=== PATIENT | male | born 1945 | race Caucasian/White ===

== ENCOUNTER 2018-07-18 08:29 | Emergency (ER) | payer MEDICARE, BC ==
[~2018-07-18] VITALS: Ht 172.7 cm; Wt 84.1 kg
[2018-07-18 08:35] VITALS: TEMP 96.6
[2018-07-18 08:51] LABS: BASO # 0.2 (0.0-0.2); BASO % 1.4 % (0.0-2.0); EOS # 0.4 (0.0-0.7); EOS % 4.1 % (0-4.0); GRAN % 65.1 % (42.2-75.2); HEMOGLOBIN 17.9 g/dl (13.5-18.0); LYMPH # 2.1 (1.2-3.4); LYMPH % 19.3 % (20.0-51.0); MEAN CELL VOLUME 89 fl (80.0-100.0); MEAN CORPUSCULAR HEMOGLOBIN 30 pg (27.0-31.0); MEAN CORPUSCULAR HGB CONC 34 g/dl (33.0-37.0); MEAN PLATELET VOLUME 10.9 fl (7.4-10.4); MONO # 1.1 (0.1-0.6); MONO % 9.8 % (1.7-9.3); PLATELET COUNT 452 K/mm3 (130-400); RED BLOOD COUNT 5.91 M/mm3 (4.20-5.60); REDCELL DISTRIBUTION WIDTH-CV 14.5 % (11.5-14.5)
[2018-07-18 08:55] LABS: HEMATOCRIT 52.4 % (42.0-52.0); INR 1.1 (0.8-3.0); PROTHROMBIN TIME 12.9 SECONDS (9.7-12.8)
[2018-07-18 08:58] LABS: PARTIAL THROMBOPLASTIN TIME 39.8 SECONDS (26.0-37.0)
[2018-07-18 09:01] LABS: ALBUMIN 4.1 gm/dL (3.5-5.0); BILIRUBIN,TOTAL 0.8 mg/dL (0.0-1.0); CALCIUM 9.6 mg/dL (8.4-10.2); CREATININE, serum 1.15 mg/dL (0.66-1.25); POTASSIUM 4.9 mmol/L (3.4-5.0); TOTAL PROTEIN 7.4 gm/dL (6.4-8.2)
[2018-07-18] MEDS ORDERED: IMDUR 30MG30 MG/TAB PO (09:06)
[2018-07-18] MEDS ORDERED: ALBUTEROL0.83 MG/ML INH (09:07)
[2018-07-18] MEDS ORDERED: ASPIRIN 81M81 MG/TA2 PO (09:08)
[2018-07-18] MEDS ORDERED: GLUCOSAMINE & C1 TAB PO (09:08)
[2018-07-18] MEDS ORDERED: MULTIPLE VITAMI1 CAP PO (09:09)
[2018-07-18] MEDS ORDERED: LOPRESSOR 225 MG/TAB PO (09:09)
[2018-07-18] MEDS ORDERED: NITROSTAT0.4 MG/TAB PO (09:10)
[2018-07-18] MEDS ORDERED: PRILOSEC 20MG20 MG PO (09:10)
[2018-07-18] MEDS ORDERED: ZOCOR 40MG40 MG PO (09:10)
[2018-07-18 09:13] LABS: TROPONIN-I 0.014 ng/mL (0.000-0.034)
[2018-07-18 11:28] VITALS: BP 127/98; PULSE 54
== END 2018-07-18 11:28 | disposition short-term general hospital (02) ==
LOC: COL.ER 08:29
PROVIDERS: Family Medicine
DX: I20.0 Unstable angina (principal); I10 Essential (primary) hypertension; Z87.891 Personal history of nicotine dependence; Z79.82 Long term (current) use of aspirin
CPT/HCPCS: J1644

== ENCOUNTER 2022-03-27 15:14 | Inpatient (IN) | payer MEDICARE, BC ==
[~2022-03-27] VITALS: Ht 170.2 cm; Wt 90.9 kg
[~2022-03-27 15:14] MED LIST: ALBUTEROL0.83 MG/ML INH; ASPIRIN 81M81 MG/TA2 PO; GLUCOSAMINE & C1 TAB PO; IMDUR 30MG30 MG/TAB PO; LOPRESSOR 225 MG/TAB PO; MULTIPLE VITAMI1 CAP PO; NITROSTAT0.4 MG/TAB PO; PRILOSEC 20MG20 MG PO; ZOCOR 40MG40 MG PO
[2022-03-27 16:10] LABS: HEMATOCRIT 45.2 % (42.0-52.0); HEMOGLOBIN 15.1 g/dl (13.5-18.0); MEAN CELL VOLUME 85 fl (80.0-100.0); MEAN CORPUSCULAR HEMOGLOBIN 29 pg (27-31); MEAN CORPUSCULAR HGB CONC 33 g/dl (33.0-37.0); PLATELET COUNT 652 K/mm3 (130-400); REDCELL DISTRIBUTION WIDTH-CV 15.4 % (11.5-14.5)
[2022-03-27 16:24] LABS: ALBUMIN 3.1 gm/dL (3.4-4.8); CALCIUM 9.6 mg/dL (8.4-10.2); CREATININE, serum 1.13 mg/dL (0.72-1.25); PHOSPHOROUS 2.7 mg/dL (2.3-4.7); POTASSIUM 4.2 mmol/L (3.5-4.5)
--- NOTE | 2022-03-27 16:25 | NUR ---
Vegetable Preparer received consult in ED for patient who presented to the ED for multiple falls and inability to care for self at home. Patient is in CT so GWEN met with patient's , Debbie who advised patient had a "hard fall" on 03/12/22 and was initially okay, however started having leg pain a few days ago. Patient was seen by his PCP, Dr. Mayo yesterday and there no was no fracture found so patient was told to give it a week. Patient has had a couple falls since his initial fall and after his fall today, Debbie was unable to help him up. Patient is normally independent with ADLS. GWEN discussed private pay placement with Debbie who advised they could do this if that's their only option. Debbie did not want referral sent to [facility], but agreed to have referral sent to [facility] after local SNF options were provided. GWEN contacted Jordan and faxed facesheet and ED note. GWEN advised it would be private pay at this time, however patient may be admitted per ED RN. Patient's verbalized understanding that either patient will be admitted or he will return home for continued placement effort tomorrow.
[2022-03-27 16:32] LABS: TROPONIN-I 0.015 ng/mL (0.00-0.033)
[2022-03-27 16:34] LABS: COLLECTION METHOD CLEAN CATCH
[2022-03-27 16:40] LABS: PH 5 (5-8); SQUAMOUS EPITHELIAL None Seen /hpf (0-10); URINE APPEARANCE Clear (CLEAR/HAZY); URINE BACTERIA None Seen /hpf (NONE SEEN); URINE BLOOD 1+ (NEGATIVE); URINE COLOR Yellow (YELLOW); URINE GLUCOSE Negative (NEGATIVE); URINE KETONE 1+ (NEGATIVE); URINE NITRATE Negative (NEGATIVE); URINE PROTEIN(semi-quant) 1+ (NEGATIVE); URINE RBC 0-2 /hpf (0-2); URINE UROBILINOGEN Negative (NEGATIVE)
[2022-03-27 16:49] LABS: PLATELET ESTIMATE INCREASED (NORMAL)
[2022-03-27 17:12] LABS: NEUTROPHILS 84 % (42.0-75.2)
[2022-03-27 17:13] LABS: LYMPHOCYTE 5 % (20.0-51.0)
[2022-03-27 17:14] LABS: BAND 2 % (0-10); EOSINOPHIL 2 % (0-4)
[2022-03-27 20:19] LABS: PARTIAL THROMBOPLASTIN TIME 90.2 SECONDS (26.0-37.0)
[2022-03-27] MEDS ORDERED: ARICEPT10 MG PO (20:22)
[2022-03-27] MEDS ORDERED: CELEXA40 MG PO (20:22)
[2022-03-27] MEDS ORDERED: COUMADIN 22.5 MG/TAB PO (20:23)
[2022-03-27] MEDS ORDERED: COUMADIN 2MG2 MG/TAB PO ×2 (20:23→21:51)
[2022-03-27] MEDS ORDERED: NAMENDA 10MG TA10 MG PO (20:24)
[2022-03-27] MEDS ORDERED: ZOCOR 40MG40 MG PO (20:24)
[2022-03-27] MEDS ORDERED: ABILIFY5 MG PO (20:25)
[2022-03-27] MEDS ORDERED: ULTRAM 50MG TAB50 MG PO (20:25)
[2022-03-27] MEDS ORDERED: CALCIUM 600MG+D1 TAB PO (20:25)
[2022-03-27 20:32] LABS: INR 19.3 (0.8-3.0); PROTHROMBIN TIME 228.8 SECONDS (9.7-12.8)
[2022-03-27 21:40] VITALS: BP 125/83; PULSE 101; TEMP 98.1
[2022-03-27 23:52] VITALS: BP 106/68; PULSE 99; TEMP 97.7
[2022-03-28 00:44] LABS: INR 1.3 (0.8-3.0); PROTHROMBIN TIME 15.5 SECONDS (9.7-12.8)
--- NOTE | 2022-03-28 02:20 | NUR ---
PATIENT ARRIVED TO FLOOR APPROX [id number]. AT BEDSIDE, PATIENT ABLE TO ANSWER SOME QUESTIONS BUT RELIES HEAVILY ON FOR INFORMATION. NO BRUISING OR DISCOLORATION NOTED TO HIP BUT PATIENT DOES HAVE GENERALIZED BRUISING NOTED. PATIENT NOTED TO BE UNCOMFORTABLE AND RESTLESS. PRN DIALUDID GIVEN AND PATIENT ABLE TO REST QUIETLY.
[2022-03-28 04:40] VITALS: BP 130/72; PULSE 102; TEMP 97.6
--- NOTE | 2022-03-28 06:15 | NUR ---
END OF SHIFT. PATIENT RESTED QUIETLY THIS SHIFT. PATIENT INR NOTED TO BE 1.3 AFTER [facility]. PATIENT ATTEMPTED TO GET UP SEVERAL TIMES UNASSISTED. PATIENT EASILY REDIRECTED AND REORIENTED. PATIENT HAD COMPLAINTS OF PAIN AND RECEIVED ONE DOSE OF ULTRAM WHICH PAIENT REPORTED RELIEF FROM. PATIENT ATTEMPTED TO URINATE BUT WAS UNABLE TO DO SO. BLADDER SCAN PERFORMED AND PATIENT NOTED TO ONLY HAVE 170 IN BLADDER. PATIENT ENCOURAGED TO DRINK MORE FLUIDS.
[2022-03-28 07:03] LABS: HEMATOCRIT 42.7 % (42.0-52.0); HEMOGLOBIN 14.3 g/dl (13.5-18.0); MEAN CELL VOLUME 86 fl (80.0-100.0); MEAN CORPUSCULAR HEMOGLOBIN 29 pg (27-31); MEAN CORPUSCULAR HGB CONC 34 g/dl (33.0-37.0); MEAN PLATELET VOLUME 11.8 fl (7.4-10.4); PLATELET COUNT 572 K/mm3 (130-400); RED BLOOD COUNT 4.95 M/mm3 (4.20-5.60); REDCELL DISTRIBUTION WIDTH-CV 15.5 % (11.5-14.5)
[2022-03-28 07:08] LABS: INR 1.2 (0.8-3.0); PROTHROMBIN TIME 13.8 SECONDS (9.7-12.8)
[2022-03-28 07:37] LABS: CALCIUM 9.4 mg/dL (8.4-10.2); CREATININE, serum 1.17 mg/dL (0.72-1.25); EOSINOPHIL 3 % (0-4); LYMPHOCYTE 4 % (20.0-51.0); NEUTROPHILS 81 % (42.0-75.2); OVALOCYTES 1+; PLATELET ESTIMATE INCREASED (NORMAL)
[2022-03-28 07:53] VITALS: BP 113/88; PULSE 92; TEMP 98.8
--- NOTE | 2022-03-28 08:19 | NUR ---
PATIENT IS CURRENTLY IN A PLEASANT MOOD. ANSWERED YEAR AND BIRTHDAY CORRECTLY. UNABLE TO TELL ME TODAY DATE, OR PRESIDENT, OR WHERE HE CURRENTLY IS. PATIENT REORIENTED. CALL LIGHT EXPLAINED. CALL LIGHT AND WATER WITHIN REACH.
--- NOTE | 2022-03-28 10:59 | NUR ---
[facility] HAS PUT A FALL RISK BAND ON THE PATIENT TWO TIMES. HE TOOK OFF THE WRIST BAND. ANOTHER APPLIED. JOANNA NON COMPLIANT.
[2022-03-28 12:08] VITALS: BP 138/77; PULSE 100; TEMP 97.6
--- NOTE | 2022-03-28 12:53 | NUR ---
Initial visit; Patient thanked Knuckle Bender for introducing herself and talking with 'Mike about what brought him to the hospital. Both he and his agreed that they had a diagnosis now and could work with it and hoped Mike would soon be better. Knuckle Bender offered God's blessings.
--- NOTE | 2022-03-28 14:00 | NUR ---
INFORMED PHYSICIAN PATIENTS IS ADAMEN THAT SHE WAS INFORMED WE WOULD DO AN MRI TO DECIPHER BETWEEN HEMATOMA VS ABCESS FROM OTHER IMAGES TAKEN. PHYSICIAN STATED TO INFORM PATIENTS THAT WE HAVE AN ESR LAB PENDING AND ONCE IT RESULTS WE WILL KNOW WHAT STEP TO TAKE NEXT.
--- NOTE | 2022-03-28 15:21 | NUR ---
GWEN contacted Jordan at [facility] to follow up on referral. Jordan reports that they will need more information before deciding on if they can accept or not. Updates faxed to [facility].
[2022-03-28 15:42] VITALS: BP 102/70; PULSE 95; TEMP 97.9
--- NOTE | 2022-03-28 16:00 | NUR ---
INFORMED PHYSICIAN ESR CAME BACK WNL. PHSYICIAN SAID NO FURTHER TESTS NEEDED.
[2022-03-28 20:28] VITALS: BP 119/73; PULSE 92; TEMP 98.2
[2022-03-29 00:28] VITALS: BP 116/51; PULSE 92; TEMP 98.1
[2022-03-29 07:45] VITALS: BP 121/66; PULSE 88; TEMP 98
[2022-03-29 12:08] VITALS: BP 110/69; PULSE 90; TEMP 97.9
--- NOTE | 2022-03-29 15:32 | NUR ---
GWEN staffed with the hospitalist. The patient is awaiting an MRI. He may be able to discharge over the weekend, otherwise he would be looking at Friday. GWEN notified Jordan at [facility]. He states that they are still reviewing the referral. They would request a copy of the patient's DPOA-HC. GWEN contacted the patient's , Debbie, to update. GWEN informed her how the patient was admitted inpatient, so they would not have to private pay now. Debbie states that she does have a copy of the DPOA-HC and she will bring it up to the hospital. She would like to pursue with the patient going to [facility]. *Discharge plan: [facility]-awaiting acceptance*
[2022-03-29 15:59] VITALS: BP 103/65; PULSE 78; TEMP 98.2
[2022-03-29 20:07] VITALS: BP 117/60; PULSE 78; TEMP 97.8
[2022-03-29 23:57] VITALS: BP 112/68; PULSE 80; TEMP 98.2
[2022-03-30 04:00] VITALS: BP 122/74; PULSE 87; TEMP 98.2
[2022-03-30 07:04] LABS: BASO # 0.1 K/mm3 (0.0-0.2); BASO % 1.1 % (0.0-2.0); EOS # 0.6 K/mm3 (0.0-0.7); EOS % 5.3 % (0.0-4.0); GRAN # 7.9 K/mm3 (1.4-6.5); GRAN % 71.2 % (42.2-75.2); HEMATOCRIT 37.9 % (42.0-52.0); HEMOGLOBIN 12.4 g/dl (13.5-18.0); LYMPH # 1.3 K/mm3 (1.2-3.4); MEAN CELL VOLUME 88 fl (80.0-100.0); MEAN CORPUSCULAR HEMOGLOBIN 29 pg (27-31); MEAN CORPUSCULAR HGB CONC 33 g/dl (33.0-37.0); MEAN PLATELET VOLUME 11.3 fl (7.4-10.4); MONO # 1.1 K/mm3 (0.1-0.6); PLATELET COUNT 538 K/mm3 (130-400); REDCELL DISTRIBUTION WIDTH-CV 15.6 % (11.5-14.5)
[2022-03-30 07:22] LABS: CALCIUM 9.2 mg/dL (8.4-10.2); CREATININE, serum 1.25 mg/dL (0.72-1.25); POTASSIUM 3.7 mmol/L (3.5-4.5)
[2022-03-30 08:00] VITALS: BP 119/82; PULSE 78; TEMP 97.6
--- NOTE | 2022-03-30 10:54 | NUR ---
Patient alert and oriented to self, location (believes he is in [facility]), aware of situation of falls and memeory problems. Otherwise confused and disoriented to surroundings. Easily redirected. Lungs clear, no complaints of pain unless moving around. Leg pain 6-7 of 10 when moving. Patient 1 assist with walker and gait belt to bedside commode. Plan for MRI on friday, discharge plan to [facility] pending MRI results.
[2022-03-30 12:00] VITALS: BP 121/62; PULSE 77
[2022-03-30 16:00] VITALS: BP 104/65; PULSE 78
[2022-03-30 17:44] VITALS: TEMP 97
--- NOTE | 2022-03-30 17:55 | NUR ---
Patient plesantly confused. Complaints of 6-7 out of 10 pain when moving. at bedside, requesting pain meds for patient. informed that patient needs to request pain meds, and express pain. Restlessness in evening can be contributed to dementia or to pain. Nursing staff will assess for pain on patient and not give meds based on request. Patient remains continent of urine and bowels. Calm in room. Easy to redirect when not at bedside. Sleeping most of the day. Patient continues to feed self, worked with PT/OT today for small moments. Plan for MRI of leg/hip on Friday, discharge to [facility] pending results.
[2022-03-30 20:40] VITALS: BP 128/74; PULSE 75; TEMP 97.5
[2022-03-31 00:10] VITALS: BP 112/61; PULSE 95; TEMP 97.9
--- NOTE | 2022-03-31 02:05 | NUR ---
Pt alert, but forgetful. Forgets limitations. Will get OOB without assistance. Easily re-oriented. Pt able to state name, birthday, and city correctly. Fall precautions in place. Pt frequently re-educated and re-oriented. Pt is calm and cooperative. Tolerating PO. VS stable. On room air. IV antibx continued per orders. Pt reports left hip pain. Prn pain medication administered per orders. Pt has bruising noted on the inner left thigh and on the upper back. Pt repositioned prn. Shift assessment performed. Medications administered per orders and education provided. Bed low and locked, call umana within reach. Pt does not report any questions at this time. No new concerns at this time.
[2022-03-31 04:17] VITALS: BP 133/85; PULSE 77; TEMP 97.6
--- NOTE | 2022-03-31 06:48 | NUR ---
No adverse events overnight. Pt alert, still forgetful. Easily re-oriented and follows commands. IV antibx continued overnight per orders. Pt denies pain this morning. Pt has very weak gait with assistance and a walker. Tolerating PO. Up to void overnight. Fall precautions in place. Bed low and locked, call umana within reach. No new concerns at this time.
[2022-03-31 07:40] LABS: BASO # 0.1 K/mm3 (0.0-0.2); BASO % 0.9 % (0.0-2.0); EOS # 0.6 K/mm3 (0.0-0.7); EOS % 5.3 % (0.0-4.0); GRAN # 8.1 K/mm3 (1.4-6.5); GRAN % 74.7 % (42.2-75.2); HEMATOCRIT 38.9 % (42.0-52.0); HEMOGLOBIN 12.7 g/dl (13.5-18.0); LYMPH # 1.2 K/mm3 (1.2-3.4); LYMPH % 10.6 % (20.0-51.0); MEAN CELL VOLUME 88 fl (80.0-100.0); MEAN CORPUSCULAR HEMOGLOBIN 29 pg (27-31); MEAN CORPUSCULAR HGB CONC 33 g/dl (33.0-37.0); MEAN PLATELET VOLUME 11.2 fl (7.4-10.4); MONO # 0.9 K/mm3 (0.1-0.6); MONO % 8.1 % (1.7-9.3); PLATELET COUNT 539 K/mm3 (130-400); RED BLOOD COUNT 4.44 M/mm3 (4.20-5.60); REDCELL DISTRIBUTION WIDTH-CV 15.3 % (11.5-14.5)
[2022-03-31 07:58] LABS: CALCIUM 9.5 mg/dL (8.4-10.2); CREATININE, serum 1.23 mg/dL (0.72-1.25); POTASSIUM 3.7 mmol/L (3.5-4.5)
[2022-03-31 08:00] VITALS: BP 131/71; PULSE 76; TEMP 98.6
[2022-03-31 12:00] VITALS: BP 102/69; PULSE 79; TEMP 97.6
[2022-03-31 16:00] VITALS: BP 110/86; PULSE 79; TEMP 98.2
--- NOTE | 2022-03-31 20:30 | NUR ---
Initial shift assessment done- has been getting out of bed- bed alarm going off- states he needs to go to bathroom, used the urinal but also wanted to get to the bathroom-- back to bed, alarm on, pt states pain to left hip 03/03 -will give Ultram at this time, is confused but pleasant and overall cooperative, VSS
[2022-03-31 20:57] VITALS: BP 108/58; PULSE 72; TEMP 98.3
[2022-04-01] VITALS (7 sets, daily range): BP systolic 128–152; BP diastolic 67–86; PULSE 70–82; TEMP 97.6–98.6
--- NOTE | 2022-04-01 05:54 | NUR ---
Has been sleeping well for the past 2 -3 hours-- was awake beginning of shift- sat in the chair for awhile-- denied need for anymore pain meds after the initial tramadol was given-- sleeping now. VSS
[2022-04-01 06:44] LABS: INR 1.7 (0.8-3.0); PROTHROMBIN TIME 19.1 SECONDS (9.7-12.8)
[2022-04-01 06:45] LABS: BASO # 0.2 K/mm3 (0.0-0.2); BASO % 1.5 % (0.0-2.0); EOS # 0.6 K/mm3 (0.0-0.7); EOS % 5.6 % (0.0-4.0); GRAN # 7.9 K/mm3 (1.4-6.5); GRAN % 70.4 % (42.2-75.2); HEMATOCRIT 38.7 % (42.0-52.0); HEMOGLOBIN 12.7 g/dl (13.5-18.0); LYMPH # 1.4 K/mm3 (1.2-3.4); LYMPH % 12.5 % (20.0-51.0); MEAN CELL VOLUME 87 fl (80.0-100.0); MEAN CORPUSCULAR HEMOGLOBIN 29 pg (27-31); MEAN CORPUSCULAR HGB CONC 33 g/dl (33.0-37.0); MEAN PLATELET VOLUME 11.2 fl (7.4-10.4); MONO # 1.1 K/mm3 (0.1-0.6); MONO % 9.5 % (1.7-9.3); PLATELET COUNT 534 K/mm3 (130-400); RED BLOOD COUNT 4.46 M/mm3 (4.20-5.60); REDCELL DISTRIBUTION WIDTH-CV 15.5 % (11.5-14.5)
[2022-04-01 06:46] LABS: CALCIUM 9.3 mg/dL (8.4-10.2); CREATININE, serum 1.28 mg/dL (0.72-1.25); POTASSIUM 4.1 mmol/L (3.5-4.5)
--- NOTE | 2022-04-01 10:17 | NUR ---
Clinical updates faxed to Lisseth at [facility] for review.
--- NOTE | 2022-04-01 14:31 | NUR ---
GWEN notified by Lisseth at [facility] that they are able to accept this patient. DPOA-HC information requested. GWEN met with patient and patient's Debbie at bedside to inform them that [facility] accepts. Debbie has a copy of the patient's DPOA-HC and she is listed at his agent. Copy made, stickered and placed in the patients chart. Copy faxed to [facility] for their records.
--- NOTE | 2022-04-02 03:39 | NUR ---
PT ALERT, PARITALLY ORIENTED. PT ABLE TO STATE NAME AND BIRTHDAY, BUT OFTEN FORGETS WHERE HE IS AND GETS OOB WITHOUT ASSISTANCE. FALL PRECAUTIONS IN PLACE. PT FORGETFUL, BUT IS EASILY RE-ORIENTED AND RE-EDUCATED. PT REPORTED LEFT HIP PAIN THIS EVENING WITH MOVEMENT. PRN PAIN MEDICATION ADMINISTERED PER ORDERS AND RELIEF REPORTED. A LARGE BRUISE WAS NOTED ON THE PT'S LEFT INNER THIGH THAT SPREADS UP INTO HIS LEFT LOWER BACK. NOTED ANOTHER MEDIUM-SIZED BRUISE ON THE PT'S RIGHT LOWER BACK. VS STABLE. PT ON ROOM AIR. SHIFT ASSESSMENT PERFORMED. MEDICATIONS ADMINISTERED PER ORDERS AND EDUCATION PROVIDED. PT TOLERATING PO. BED LOW AND LOCKED, CALL HUSSEIN WITHIN REACH. NO NEW CONCERNS AT THIS TIME.
[2022-04-02 03:59] VITALS: BP 141/84; PULSE 76; TEMP 98.3
--- NOTE | 2022-04-02 05:50 | NUR ---
NO ADVERSE EVENTS OVERNIGHT. PT ALERT, FORGETFUL AND BECOMES DISORIENTED TO PLACE. EASILY RE-ORIENTED. BRUISING NOTED ON THE LEFT THIGH TO LEFT LOWER BACK AND BRUISE ON THE RIGHT LOWER BACK. PT TOLERATING PO. UP TO VOID. PAIN MEDICATION ADMINISTERED X1 FOR PAIN OF LEFT HIP. VS STABLE. ON ROOM AIR. FALL PRECAUTIONS IN PLACE. BED LOW AND LOCKED, CALL HUSSEIN WITHIN REACH. NO OTHER CONCERNS AT THIS TIME.
[2022-04-02 05:51] LABS: BASO # 0.1 K/mm3 (0.0-0.2); BASO % 1.2 % (0.0-2.0); EOS # 0.6 K/mm3 (0.0-0.7); EOS % 5.3 % (0.0-4.0); GRAN # 8.2 K/mm3 (1.4-6.5); GRAN % 71.4 % (42.2-75.2); HEMATOCRIT 39.3 % (42.0-52.0); HEMOGLOBIN 12.9 g/dl (13.5-18.0); LYMPH # 1.5 K/mm3 (1.2-3.4); LYMPH % 12.6 % (20.0-51.0); MEAN CELL VOLUME 87 fl (80.0-100.0); MEAN CORPUSCULAR HEMOGLOBIN 29 pg (27-31); MEAN CORPUSCULAR HGB CONC 33 g/dl (33.0-37.0); MEAN PLATELET VOLUME 10.7 fl (7.4-10.4); PLATELET COUNT 554 K/mm3 (130-400); RED BLOOD COUNT 4.51 M/mm3 (4.20-5.60); REDCELL DISTRIBUTION WIDTH-CV 15.5 % (11.5-14.5)
[2022-04-02 06:03] LABS: CALCIUM 9.6 mg/dL (8.4-10.2); CREATININE, serum 1.2 mg/dL (0.72-1.25); POTASSIUM 4.1 mmol/L (3.5-4.5)
[2022-04-02 08:00] VITALS: BP 119/78; PULSE 82; TEMP 97.6
[2022-04-02 08:51] LABS: INR 1.6 (0.8-3.0); PROTHROMBIN TIME 18.3 SECONDS (9.7-12.8)
--- NOTE | 2022-04-02 09:04 | NUR ---
PT SITTING UP IN BED VISITING WITH FAMILY, SHIFT ASSESSMENT PERFOMED. PT A&O TO PERSON AND PLACE, BUT NOT TIME OR SITUATION. DIMINISHED LUNG SOUNDS NOTED IN BILATERAL BASES. BRUISING NOTED ON LEFT INNER THIGH AND LEFT HIP AREA. PT REPORTS PAIN IN LEFT HIP AREA AT 8/10, AND DESCRIBES IT ACHY WITH OCCASIONAL STABBING.
--- NOTE | 2022-04-02 10:30 | NUR ---
pt's found in camejo stating "something is wrong." Pt found to be verbally unresponsive. VS Within normal limits. Blood sugar checked and found to be in a normal range. A neurological assessment was performed and pt was found to be unable to follow verbal commands, as well as very weak bilateral hand grasps which is a change from pervious assessment. Dr. Vang
[2022-04-02 12:00] VITALS: BP 119/67; PULSE 72; TEMP 97.7
[2022-04-02 16:00] VITALS: BP 130/68; PULSE 71; TEMP 98
--- NOTE | 2022-04-02 18:32 | NUR ---
PT ALERT WITH VARIABLE ORIENTATION. PT HAD EPISODE OF DECREASED NEUROLOGIC FUNCTION THIS MORNING, RESULTING IN INABILITY TO RESPOND TO VERBAL COMMANDS AND WEAKNESS IN HANDS. FOLLOWED UP WITH CT. BY 1300, WAS ALERT AND ORIENTED TO PERSON. PLACE, AND TIME. HAS BEEN ALERT AND ORIENTED X3 SINCE.
[2022-04-02 20:16] VITALS: BP 126/78; PULSE 76; TEMP 98.8
[2022-04-02 23:57] VITALS: BP 131/79; PULSE 73; TEMP 98
--- NOTE | 2022-04-03 00:54 | NUR ---
Pt alert, continues to be forgetful. Calm and follows commands. Easily re-oriented. Pt reported left hip pain with movement. Prn pain medication administered per orders and education provided. Pt up to void. IV fluids completed and d/c'd per orders. Pt tolerating PO. Speech clear. Bruise noted on the left inner thigh that extends to the left lower back. Pt also has a bruise noted on the right lower back. No new weakness noted in the extremities. Shift assessment performed. Medications administered per orders and education provided. VS stable. On room air. Fall precautions in place. Bed low and locked, call umana within reach. No new concerns at this time.
[2022-04-03 04:04] VITALS: BP 133/75; PULSE 72; TEMP 97.5
--- NOTE | 2022-04-03 06:07 | NUR ---
No adverse events overnight. Pt alert, forgetful, but easily re-oriented. Up to void overnight. Speech clear, no episodes of unresponsiveness overnight. VS stable. On room air. Tolerating PO. Pt reports pain as a 2-3 this morning. Bruising remains on left inner thigh, left lower back, and right lower back. Fall precautions in place. Bed low and locked, call umana within reach.
[2022-04-03 06:42] LABS: CALCIUM 9.4 mg/dL (8.4-10.2); CREATININE, serum 1.11 mg/dL (0.72-1.25)
[2022-04-03 06:46] LABS: INR 1.5 (0.8-3.0); PROTHROMBIN TIME 17.2 SECONDS (9.7-12.8)
[2022-04-03 06:48] LABS: BASO # 0.1 K/mm3 (0.0-0.2); BASO % 1.1 % (0.0-2.0); EOS # 0.6 K/mm3 (0.0-0.7); EOS % 4.7 % (0.0-4.0); GRAN % 72.7 % (42.2-75.2); HEMATOCRIT 39.2 % (42.0-52.0); LYMPH # 1.5 K/mm3 (1.2-3.4); LYMPH % 12.3 % (20.0-51.0); MEAN CELL VOLUME 86 fl (80.0-100.0); MEAN CORPUSCULAR HEMOGLOBIN 29 pg (27-31); MEAN CORPUSCULAR HGB CONC 33 g/dl (33.0-37.0); MONO # 1.1 K/mm3 (0.1-0.6); MONO % 8.6 % (1.7-9.3); PLATELET COUNT 551 K/mm3 (130-400); RED BLOOD COUNT 4.55 M/mm3 (4.20-5.60); REDCELL DISTRIBUTION WIDTH-CV 15.7 % (11.5-14.5)
[2022-04-03 07:20] VITALS: BP 133/78; PULSE 77; TEMP 98.4
--- NOTE | 2022-04-03 07:45 | NUR ---
PT FOUND SITTING UP IN BED AND ALERT, ORIENTED TO SELF, TIME, AND SITUATION, BUT NOT PLACE. NEUROLOGIC ASSESSMENT PERFORMED, FIXED PINPOINT PUPILS NOTED. SHIFT ASSESSMENT PERFORMED, BRUISING NOTED ON MIDDLE RT BACK, LFT HIP AREA, AND INNER LFT THIGH. VS WNL. MORNING MEDICATIONS ADMINISTERED. CALL LIGHT WITHIN REACH.
[2022-04-03 11:40] VITALS: BP 118/81; PULSE 72; TEMP 98.2
[2022-04-03 13:37] VITALS: BP 118/81; PULSE 72; TEMP 98.2
--- NOTE | 2022-04-03 13:42 | NUR ---
Rosetta ARANA informs Social Work patient is ready for discharge back to [facility]. Real Estate Processor notified Lisseth at [facility], and patient is accepted for return. Clinicals and discharge orders faxed. [facility] transportation to last picker patient at 2:30. Rosetta ARANA informed. *Discharge plan: return to [facility]*
--- NOTE | 2022-04-03 14:50 | NUR ---
Pt left with [facility] staff member at this time. Bilateral forearm IV's dc'd
--- NOTE | 2022-04-03 15:04 | NUR ---
Report given to [facility].
== END 2022-04-03 15:04 | DRG 556 ==
LOC: COL.ER 15:14 → MEDICAL 20:15
PROVIDERS: Emergency Medicine; Physician Assistant; Student in an Organized Health Care Education/Training Program; ADMIT Internal Medicine
DX: M79.81 Nontraumatic hematoma of soft tissue (principal); I27.82 Chronic pulmonary embolism; R65.10 Systemic inflammatory response syndrome (SIRS) of non-infectious origin without acute organ dysfunction; F03.90 Unspecified dementia, unspecified severity, without behavioral disturbance, psychotic disturbance, mood disturbance, and anxiety; I27.20 Pulmonary hypertension, unspecified; S20.212A Contusion of left front wall of thorax, initial encounter; W18.39XA Other fall on same level, initial encounter; E78.5 Hyperlipidemia, unspecified; Z66 Do not resuscitate; R79.1 Abnormal coagulation profile; D72.829 Elevated white blood cell count, unspecified; Z20.822 Contact with and (suspected) exposure to COVID-19; R41.82 Altered mental status, unspecified; I65.23 Occlusion and stenosis of bilateral carotid arteries; Z79.01 Long term (current) use of anticoagulants; Z79.82 Long term (current) use of aspirin; Y93.89 Activity, other specified; Y92.89 Other specified places as the place of occurrence of the external cause
CPT/HCPCS: A9575; J1170; J2270; J2543; J3430; J7030; J7168; Q9967

== ENCOUNTER → 2022-05-01 | Outpatient (CLI) | payer MEDICARE, BC ==
[~2022-05-01] MED LIST changes: +ABILIFY5 MG PO; +ARICEPT10 MG PO; +CALCIUM 600MG+D1 TAB PO; +CELEXA40 MG PO; +COUMADIN 22.5 MG/TAB PO; +COUMADIN 2MG2 MG/TAB PO; +NAMENDA 10MG TA10 MG PO; +ULTRAM 50MG TAB50 MG PO
== END ==
LOC: COL.RAD 07:46
DX: S70.12XA Contusion of left thigh, initial encounter (principal)